=== PATIENT | male | born 1990 | race Caucasian/White ===

== ENCOUNTER 2019-03-20 01:30 | Inpatient (IN) | payer OTHER ==
[2019-03-20] VITALS (9 sets, daily range): BP systolic 116–146; BP diastolic 69–82
[~2019-03-20] VITALS: Ht 170.2 cm; Wt 60.0 kg
[2019-03-20] MEDS ORDERED: LORA0.5T2 PO (01:58)
[2019-03-20] MEDS ORDERED: LAMO100 PO (01:58)
[2019-03-20 02:12] LABS: AMPHET/METH SCREEN,URINE NEGATIVE (NEGATIVE); BARBITURATE SCREEN, URINE NEGATIVE (NEGATIVE); BENZODIAZEPINES SCREEN,URINE NEGATIVE (NEGATIVE); CANNABINOID SCREEN,URINE POSITIVE (NEGATIVE); COCAINE SCREEN,URINE NEGATIVE (NEGATIVE); METHADONE SCREEN, URINE NEGATIVE (NEGATIVE); OPIATE SCREEN,URINE NEGATIVE (NEGATIVE); PHENCYCLIDINE SCREEN,URINE NEGATIVE (NEGATIVE)
[2019-03-20 02:43] LABS: BASOPHILS % (AUTO) 1.1 % (0.0-2.0); EOSINOPHILS % (AUTO) 0.6 % (1.0-6.0); HEMATOCRIT 47.4 % (41-53); HEMOGLOBIN 15.6 g/dL (13.5-17.5); LYMPHOCYTES # (AUTO) 1.3 K/uL (1.0-4.8); LYMPHOCYTES % (AUTO) 20.7 % (22.0-44.0); MEAN CORPUSCULAR HEMOGLOBIN 29.6 pg (26.0-34.0); MEAN CORPUSCULAR HGB CONC 32.8 G/dL (31.0-37.0); MEAN CORPUSCULAR VOLUME 90 fL (80-100); MONOCYTES # (AUTO) 0.3 K/uL (0.1-1.0); MONOCYTES % (AUTO) 5.4 % (2.0-9.0); NEUTROPHILS # (AUTO) 4.6 K/uL (1.8-7.7); NEUTROPHILS % (AUTO) 72.2 % (40.0-70.0); PLATELET COUNT (AUTO) 248 K/uL (150-450); RED BLOOD CELL COUNT(AUTO) 5.25 MIL/uL (4.50-5.90); RED CELL DISTRIBUTION WIDTH 13.2 % (11.5-14.5)
[2019-03-20 02:55] LABS: ANION GAP 11 mmol/L (8-16); CALCIUM, TOTAL 8.9 mg/dL (8.8-10.5); CARBON DIOXIDE 25 mmol/L (22-29); CHLORIDE 106 mmol/L (98-107); CREATININE 1.35 mg/dL (0.60-1.30); GLOMERULAR FILTR. RATE CALC > 60 mL/min (>60); GLUCOSE,RANDOM 87 mg/dL (70-110); SODIUM SERUM 142 mmol/L (136-145); UREA NITROGEN, BLOOD 14 mg/dL (7-18)
[2019-03-20 03:01] LABS: ALANINE AMINOTRANSFERASE 22 U/L (12-78); ALBUMIN 4.6 g/dL (3.4-5.0); ALKALINE PHOSPHATASE 82 U/L (46-116); ASPARTATE AMINOTRANSFERASE 21 U/L (15-37); BILIRUBIN,TOTAL 0.6 mg/dL (0.1-1.0); TOTAL PROTEIN, SERUM 7.9 g/dL (6.4-8.2)
[2019-03-20] MEDS ORDERED: HALOPERIDOL 5 MG TABLET PO PRN (04:00)
[2019-03-20] MEDS ORDERED: ZOLPIDEM TARTRATE 10 MG TABLET PO PRN (04:00)
[2019-03-20] MEDS ORDERED: ACETAMINOPHEN 325 MG TABLET PO PRN (11:00)
[2019-03-20] MEDS ORDERED: GuaiFENesin/D-METHORPHAN [SUGAR-FREE] 200-20MG/10 ML SYRUP UDCUP PO PRN (11:00)
[2019-03-20] MEDS ORDERED: DOCUSATE SODIUM 100 MG CAPSULE PO PRN (11:00)
[2019-03-20] MEDS ORDERED: IBUPROFEN 400 MG TABLET PO PRN (11:00)
[2019-03-20] MEDS ORDERED: PETROLATUM,WHITE 28 GM JELLY TP PRN (11:00)
[2019-03-20] MEDS ORDERED: LOPERAMIDE HCL 2 MG CAPSULE PO PRN (11:00)
[2019-03-20] MEDS ORDERED: ALBUTEROL SULFATE HFA 90 MCG/PUFF 8 GM INHALER IH PRN (11:00)
[2019-03-20] MEDS ORDERED: MAG HYDROX/AL HYDROX/SIMETH ES 30 ML SUSPENSION UDCUP PO PRN (11:00)
[2019-03-20] MEDS ORDERED: MAGNESIUM HYDROXIDE SUSPENSION 30 ML UDCUP PO PRN (11:00)
[2019-03-20] MEDS ORDERED: NICOTINE 14 MG/24 HOUR PATCH TD PRN (11:00)
[2019-03-20] MEDS ORDERED: CloNIDine HCL 0.1 MG TABLET PO PRN (11:00)
[2019-03-20] MEDS ORDERED: ONDANSETRON HCL 4 MG TABLET PO PRN (11:00)
[2019-03-20] MEDS: LORazepam 2 MG TABLET PO PRN (15:06)
[2019-03-21] VITALS (8 sets, daily range): BP systolic 11–144; BP diastolic 60–80
[2019-03-21] MEDS: LamoTRIgine 100 MG TABLET PO SCH (10:09)
[2019-03-21] MEDS: LORazepam 2 MG TABLET PO PRN (20:48)
[2019-03-22 06:18] VITALS: BP 118/73
[2019-03-22 08:06] VITALS: BP 142/75
[2019-03-22] MEDS: LamoTRIgine 100 MG TABLET PO SCH (08:13)
[2019-03-22 09:07] VITALS: BP 142/75
== END 2019-03-22 13:10 | disposition home or self-care (01) | DRG 885 ==
LOC: EMS 01:32 → B3A 04:30 → B2X 10:07
PROVIDERS: ADMIT Psychiatry & Neurology Child & Adolescent Psychiatry; ATTEND Psychiatry & Neurology Child & Adolescent Psychiatry
DX: F31.9 Bipolar disorder, unspecified (principal); N17.9 Acute kidney failure, unspecified; R45.851 Suicidal ideations; F10.129 Alcohol abuse with intoxication, unspecified; R03.0 Elevated blood-pressure reading, without diagnosis of hypertension; F12.10 Cannabis abuse, uncomplicated; Z71.51 Drug abuse counseling and surveillance of drug abuser; Z79.899 Other long term (current) drug therapy
CPT/HCPCS: G0480; Q0162